=== PATIENT | female | born 1970 | race Caucasian/White ===

== ENCOUNTER → 2016-10-09 | Outpatient (CLI) | payer BC ==
--- NOTE | 2016-10-09 11:28 | RAD ---
Procedure:XR ABDOMEN 1 VIEW (KUB) CLINICAL INDICATION:HEMATURIA Referring clinician:ROB MCGINNIS Exam date10/09/2016 11:08 AM CDT Comparisons: None Findings: The small and large bowel are normal in caliber without evidence of obstruction. No air-fluid levels. No suspicious calcifications are seen. Surgical clips noted within the pelvis. No acute osseous abnormality. IMPRESSION: Nonacute single view of the abdomen. Surgical clips seen in the pelvis. Electronically signed by: Joel Allison MD 10/09/2016 11:27 AM CDT
== END | disposition home or self-care (01) ==
LOC: RAD 10:55
PROVIDERS: ATTEND Nurse Practitioner Family
DX: R31.9 Hematuria, unspecified (principal)

== ENCOUNTER → 2019-07-08 | Outpatient (CLI) | payer BC ==
--- NOTE | 2019-07-08 13:46 | RAD ---
EXAM DESCRIPTION: Elbow,Right 3 Views CLINICAL HISTORY: MASS OF SOFT TISSUE COMPARISON: None Available. TECHNIQUE: AP, Lateral, and Oblique FINDINGS: Three-view right elbow shows no fracture or dislocation. No displaced fat pad or effusion is noted. There is no bone lesion. There are no significant arthritic changes. There is no radiopaque foreign body. IMPRESSION: 1. Right elbow three views Electronically signed by: Brooks Yeung MD 07/08/2019 1:44 PM POSTING SPECIALIST
== END ==
LOC: RAD 09:11
PROVIDERS: ATTEND Orthopaedic Surgery
DX: R22.9 Localized swelling, mass and lump, unspecified (principal)

== ENCOUNTER → 2019-11-30 | Outpatient (CLI) | payer BC | LOC: GMAE 10:33 | PROVIDERS: ATTEND Family Medicine | DX: Z00.00 Encounter for general adult medical examination without abnormal findings (principal) ==

== ENCOUNTER → 2020-03-06 | Outpatient (CLI) | payer BC | LOC: GMAE 14:32 | PROVIDERS: ATTEND Family Medicine | DX: R10.13 Epigastric pain (principal) ==